=== PATIENT | male | born 1970 | race Caucasian/White ===

== ENCOUNTER 2024-01-12 12:26 | Inpatient (IN) | payer MEDICARE, OTHER, MEDICAID ==
[~2024-01-12] VITALS: Ht 170.2 cm; Wt 60.0 kg
[2024-01-12 14:04] LABS: BASOPHILS % (AUTO) 0.4 % (0-1); EOSINOPHILS % (AUTO) 0.4 % (0-6); HEMATOCRIT 37.2 % (42.0-52.0); HEMOGLOBIN 12.6 g/dl (14.0-17.9); LYMPHOCYTES # (AUTO) 1.5 X10'3 (1.1-4.8); LYMPHOCYTES % (AUTO) 18.2 % (21-51); MEAN CORPUSCULAR HEMOGLOBIN 30.2 PG (27.0-31.0); MEAN CORPUSCULAR HGB CONC 33.9 g/dL (33.0-36.5); MEAN CORPUSCULAR VOLUME 89.1 FL (78-98); MEAN PLATELET VOLUME 7.4 FL (7.4-10.4); MONOCYTES # (AUTO) 1.2 X10'3 (0-0.9); MONOCYTES % (AUTO) 15.2 % (2-12); NEUTROPHILS # (AUTO) 5.3 X10'3 (1.8-7.7); NEUTROPHILS % (AUTO) 65.8 % (42-75); PLATELET COUNT 317 X10'3 (140-440); RED BLOOD COUNT 4.17 X10'6 (4.70-6.10); RED CELL DISTRIBUTION WIDTH 15.5 % (11.5-14.5)
[2024-01-12 14:29] LABS: ALBUMIN 3.2 G/DL (3.4-5.0); ANION GAP 9 (8-16); BLOOD UREA NITROGEN 20 MG/DL (7-18); BUN/CREATININE RATIO 19.2 (10.0-20.0); CALCIUM 8.4 MG/DL (8.5-10.1); CHLORIDE 104 MMOL/L (99-107); CREATININE 1.04 MG/DL (0.60-1.10); ETHANOL < 10 MG/DL (<10); GLUCOSE 108 MG/DL (70-104); POTASSIUM 3.3 MMOL/L (3.5-5.1); SODIUM 138 MMOL/L (135-145); TOTAL CARBON DIOXIDE 24.7 MMOL/L (24-32); eGFR 75 ML/MIN
[2024-01-12 14:50] LABS: TOTAL CELLS COUNTED 100
[2024-01-12 14:53] LABS: PLATELET ESTIMATE NORMAL
[2024-01-12] MEDS: LORazepam 2 mg/ml vial ONE (15:01)
[2024-01-12] MEDS: diphenhydrAMINE 50 mg/ml inj ONE (15:02)
[2024-01-12] MEDS: haloperidol lactate 5mg/ml inj ONE (15:02)
[2024-01-12] MEDS: LORazepam 2 mg/ml vial IM ONE (15:03)
[2024-01-12] MEDS: haloperidol lactate 5mg/ml inj IM ONE (15:04)
[2024-01-12] MEDS: diphenhydrAMINE 50 mg/ml inj IM ONE (15:04)
[2024-01-13] MEDS: potassium Cl 20 mEq SR tablet PO STA ×2 (02:11→14:23)
[2024-01-13 07:17] LABS: BILIRUBIN,URINE NEGATIVE (Neg); CLARITY,URINE SLIGHTLY CLOUDY (Clear); COLOR,URINE YELLOW (Yellow); GLUCOSE, URINE NEGATIVE (Neg); KETONES,URINE 15 mg/dl (Neg); LEUKOCYTE ESTERASE ,URINE NEGATIVE (Neg); NITRITES, URINE POSITIVE (Neg); OCCULT BLOOD,URINE NEGATIVE (Neg); PROTEIN,URINE TRACE mg/dl (Neg); UROBILINOGEN,URINE 0.2 E.U/dL (0.2-1.0)
[2024-01-13 07:33] LABS: URINE AMPHETAMINE SCREEN NEGATIVE (Neg); URINE BARBITUATE SCREEN NEGATIVE (Neg); URINE BENZODIAZEPINES SCREEN NEGATIVE (Neg); URINE CANNABINOID SCREEN NEGATIVE (Neg); URINE COCAINE SCREEN NEGATIVE (Neg); URINE METHADONE SCREEN NEGATIVE (Neg); URINE OPIATE SCREEN NEGATIVE (Neg); URINE PHENCYCLIDINE SCREEN NEGATIVE (Neg)
[2024-01-13 07:35] LABS: UA COLLECTION TYPE VOIDED
[2024-01-13 07:36] LABS: RBC,URINE NONE SEEN /HPF (0-2)
[2024-01-13 07:38] LABS: BACTERIA,URINE 4+ /HPF (Neg); MUCUS STRANDS NONE SEEN /LPF (Neg); SQUAMOUS EPITHELIAL CELL,UR FEW /LPF (FEW)
[2024-01-13] MEDS: cefuroxime axetil 250mg tablet PO SCH (10:09)
[2024-01-13] MEDS: haloperidol lactate 5mg/ml inj IM ONE (16:46)
[2024-01-13] MEDS: LORazepam 2 mg/ml vial IM ONE (16:46)
[2024-01-13] MEDS: diphenhydrAMINE 50 mg/ml inj IM ONE (16:47)
[2024-01-15] MEDS: diphenhydrAMINE 50 mg/ml inj IM ONE (21:14)
[2024-01-15] MEDS: CefTRIAXone 1000mg IM Kit (w/lidocaine diluent) IM ONE (21:14)
[2024-01-15] MEDS: LORazepam 2 mg/ml vial IM ONE (21:14)
[2024-01-15] MEDS: haloperidol lactate 5mg/ml inj IM ONE (21:14)
[2024-01-16] MEDS ORDERED: NO HOME MEDS (21:27)
[2024-01-17] MEDS: olanzapine 10mg tablet PO SCH (20:00)
[2024-01-18 02:11] VITALS: BP 159/90; PULSE 108; RESP 18; TEMP 98.4; O2SAT 97
[2024-01-18 02:16] VITALS: RESP 18; O2SAT 97
[2024-01-18] MEDS: LORazepam 2 mg/ml vial IM ONE (04:57)
[2024-01-18] MEDS: haloperidol lactate 5mg/ml inj IM ONE (04:58)
[2024-01-18] MEDS: diphenhydrAMINE 50 mg/ml inj IM ONE (04:59)
[2024-01-18 07:30] VITALS: BP 155/91; PULSE 96; RESP 16; TEMP 98.2; O2SAT 100
[2024-01-18] MEDS ORDERED: DIVA250T4 PO (09:29)
[2024-01-18] MEDS ORDERED: benztropine 1mg tablet PO PRN (17:10)
[2024-01-18 19:00] VITALS: BP 114/66; PULSE 87; RESP 18; RESP 20; TEMP 97.9; O2SAT 97; O2SAT 99
[2024-01-18] MEDS: divalproex 250mg tablet, delayed-release PO SCH (20:19)
[2024-01-18] MEDS: hydrOXYzine 25 MG tablet PO SCH (20:19)
[2024-01-18] MEDS: sulfamethoxazole/trimethoprim DS (800/160mg) tablet PO SCH (20:20)
[2024-01-18 23:00] VITALS: BP 99/72; PULSE 103; RESP 18; TEMP 98.4; O2SAT 99
[2024-01-19 07:30] VITALS: BP 120/75; PULSE 87; RESP 12; TEMP 98.3; O2SAT 100
[2024-01-19 17:17] LABS: CHOL/HDL RATIO 5.3 (0.00-4.99); CHOLESTEROL 154 MG/DL (0-200); HDL CHOLESTEROL 29 MG/DL (35-60); LDL CHOLESTEROL 95 MG/DL (50-100); TRIGLYCERIDES 189 MG/DL (20-135)
[2024-01-19 21:52] VITALS: BP 121/67; PULSE 97; RESP 20; TEMP 98.6; O2SAT 98
[2024-01-19 22:39] VITALS: RESP 20; O2SAT 98
[2024-01-20 06:11] LABS: BASOPHILS # (AUTO) 0.1 X10'3 (0-0.2); BASOPHILS % (AUTO) 1.1 % (0-1); EOSINOPHILS # (AUTO) 0.4 X10'3 (0-0.9); EOSINOPHILS % (AUTO) 4.1 % (0-6); HEMATOCRIT 34.7 % (42.0-52.0); HEMOGLOBIN 11.6 g/dl (14.0-17.9); LYMPHOCYTES # (AUTO) 3.1 X10'3 (1.1-4.8); LYMPHOCYTES % (AUTO) 35.6 % (21-51); MEAN CORPUSCULAR HEMOGLOBIN 30.3 PG (27.0-31.0); MEAN CORPUSCULAR HGB CONC 33.4 g/dL (33.0-36.5); MEAN CORPUSCULAR VOLUME 90.9 FL (78-98); MEAN PLATELET VOLUME 7.3 FL (7.4-10.4); MONOCYTES # (AUTO) 0.9 X10'3 (0-0.9); MONOCYTES % (AUTO) 10.1 % (2-12); NEUTROPHILS # (AUTO) 4.3 X10'3 (1.8-7.7); NEUTROPHILS % (AUTO) 49.1 % (42-75); PLATELET COUNT 488 X10'3 (140-440); RED BLOOD COUNT 3.82 X10'6 (4.70-6.10); RED CELL DISTRIBUTION WIDTH 15.4 % (11.5-14.5); WHITE BLOOD COUNT 8.7 X10'3 (4.5-11.0)
[2024-01-20 07:13] LABS: ALANINE AMINOTRANSFERASE 26 U/L (12-78); ALBUMIN 2.5 G/DL (3.4-5.0); ALBUMIN/GLOBULIN RATIO 0.7 (1.1-1.5); ALKALINE PHOSPHATASE 103 IU/L (46-116); ANION GAP 10 (8-16); ASPARTATE AMINO TRANSFERASE 16 U/L (10-37); BILIRUBIN,TOTAL 0.1 MG/DL (0.1-1.0); BLOOD UREA NITROGEN 23 MG/DL (7-18); BUN/CREATININE RATIO 20.9 (10.0-20.0); CALCIUM 8.2 MG/DL (8.5-10.1); CHLORIDE 108 MMOL/L (99-107); GLUCOSE 90 MG/DL (70-104); POTASSIUM 4.3 MMOL/L (3.5-5.1); SODIUM 142 MMOL/L (135-145); TOTAL CARBON DIOXIDE 24.3 MMOL/L (24-32); TOTAL PROTEIN 6.2 G/DL (6.4-8.2); eCRCL 64 ML/MIN; eGFR 70 ML/MIN
[2024-01-20 07:27] VITALS: BP 130/80; PULSE 89; RESP 16; TEMP 98.8; O2SAT 97
[2024-01-20 07:54] VITALS: RESP 16; O2SAT 97
[2024-01-20 19:00] VITALS: RESP 18; O2SAT 96
[2024-01-20 20:00] VITALS: BP 102/58; PULSE 98; RESP 18; TEMP 98.6; O2SAT 96
[2024-01-21 07:30] VITALS: BP 123/72; PULSE 78; RESP 16; TEMP 98.9; O2SAT 97
[2024-01-21 08:26] VITALS: RESP 16; O2SAT 97
[2024-01-21 19:00] VITALS: RESP 16; O2SAT 95
[2024-01-21 20:00] VITALS: BP 101/63; PULSE 81; RESP 16; TEMP 98.5; O2SAT 95
[2024-01-22 08:00] VITALS: BP 144/87; PULSE 82; RESP 14; TEMP 98.5; O2SAT 98
[2024-01-22 19:00] VITALS: RESP 16; O2SAT 98
[2024-01-22 20:00] VITALS: BP 104/62; PULSE 92; RESP 16; TEMP 99; O2SAT 98
[2024-01-23 07:30] VITALS: BP 123/86; PULSE 86; RESP 18; TEMP 97.8; O2SAT 97
[2024-01-23 19:00] VITALS: BP 98/60; PULSE 72; RESP 14; TEMP 98.8; O2SAT 98
[2024-01-24 07:30] VITALS: BP 118/78; PULSE 84; RESP 16; TEMP 97.6; O2SAT 97
[2024-01-24 19:00] VITALS: RESP 16; O2SAT 96
[2024-01-24 20:00] VITALS: BP 95/58; PULSE 89; RESP 18; TEMP 98.6; O2SAT 99
[2024-01-25 07:00] VITALS: RESP 16; O2SAT 97
[2024-01-25 08:00] VITALS: BP 133/85; PULSE 68; RESP 16; TEMP 98.6; O2SAT 97
[2024-01-25 19:00] VITALS: BP 109/64; PULSE 89; RESP 16; TEMP 98.2; O2SAT 98
[2024-01-26 07:00] VITALS: RESP 16; O2SAT 98
[2024-01-26 08:00] VITALS: BP 126/77; PULSE 81; RESP 16; TEMP 98; O2SAT 98
[2024-01-26] MEDS ORDERED: OLAN10TA73 PO (12:07)
[2024-01-26] MEDS ORDERED: HYDR-3686 PO (12:07)
[2024-01-26] MEDS ORDERED: DIVA125C10 PO (12:07)
== END 2024-01-26 13:09 | disposition home or self-care (01) | DRG 885 ==
LOC: ER 12:27 → ADULT MH 01-17 16:11
PROVIDERS: ADMIT Psychiatry & Neurology Psychiatry; ATTEND Psychiatry & Neurology Psychiatry
PROC: GZHZZZZ Group Psychotherapy (ICD-10-PCS; principal; 2024-01-18)
DX: F31.9 Bipolar disorder, unspecified (principal); Z59.01 Sheltered homelessness; N39.0 Urinary tract infection, site not specified; F25.9 Schizoaffective disorder, unspecified; D64.9 Anemia, unspecified; Z20.822 Contact with and (suspected) exposure to COVID-19; F41.9 Anxiety disorder, unspecified; Z91.148 Patient's other noncompliance with medication regimen for other reason
CPT/HCPCS: 36415; 80048; 80053; 80061; 80164; 80305; 80320; 81001; 82607; 84443; 85007; 85025; 87081; 87811; 96372; 99285; J1200; J1630; J2060; Q0177

== ENCOUNTER 2024-01-27 03:25 | Emergency (ER) | payer MEDICARE, MEDICAID ==
[~2024-01-27] VITALS: Ht 170.2 cm; Wt 68.2 kg
[~2024-01-27 03:25] MED LIST: DIVA125C10 PO; DIVA250T4 PO; HYDR-3686 PO; NO HOME MEDS; OLAN10TA73 PO
[2024-01-27 05:48] VITALS: TEMP 98
[2024-01-27] MEDS: OLANZapine 2.5MG tablet PO ONE (07:23)
[2024-01-27] MEDS: hydrOXYzine 25 MG tablet PO ONE (07:23)
[2024-01-27 07:24] VITALS: BP 109/66; PULSE 94; RESP 18; O2SAT 98
== END 2024-01-27 07:57 | disposition home or self-care (01) ==
LOC: ER 03:26
DX: Z00.00 Encounter for general adult medical examination without abnormal findings (principal); Z91.199 Patient's noncompliance with other medical treatment and regimen due to unspecified reason
CPT/HCPCS: 99283; Q0177

== ENCOUNTER 2024-03-06 01:13 | Emergency (ER) | payer MEDICAID, MEDICARE, OTHER ==
[~2024-03-06] VITALS: Ht 170.2 cm; Wt 58.2 kg
[~2024-03-06 01:13] MED LIST changes: -DIVA250T4 PO; -NO HOME MEDS
[2024-03-06 01:14] VITALS: RESP 18; TEMP 98.4; O2SAT 97
[2024-03-06 01:47] VITALS: BP 120/88; PULSE 126
== END 2024-03-06 01:49 ==
LOC: ER 01:13
DX: S01.01XA Laceration without foreign body of scalp, initial encounter (principal); Z79.899 Other long term (current) drug therapy; W01.0XXA Fall on same level from slipping, tripping and stumbling without subsequent striking against object, initial encounter; Y93.89 Activity, other specified; Y92.89 Other specified places as the place of occurrence of the external cause; Y99.8 Other external cause status
CPT/HCPCS: 12001; 99283; A6449